=== PATIENT | female | born 1990 | race Caucasian/White ===

== ENCOUNTER 2019-09-15 | Emergency (ER) | payer BC ==
[2019-09-15] MEDS ORDERED: TAM75CAP PO (18:59)
[2019-09-15] MEDS ORDERED: TESSALON PER100 MG PO (18:59)
== END 2019-09-15 19:11 | disposition home or self-care (01) | DRG 866 ==
DX: B34.9 Viral infection, unspecified (principal)

== ENCOUNTER 2019-10-29 | Emergency (ER) | payer BC ==
[~2019-10-29] MED LIST: TAM75CAP PO; TESSALON PER100 MG PO
[2019-10-29 15:53] LABS: HEMATOCRIT 37.9 % (37.0-47.0); HEMOGLOBIN 12.6 g/dl (12.0-16.0); IMMATURE GRANULOCYTES 0.5 % (0.0-5.0); MEAN CELL VOLUME 90.2 fL CALC (80.0-100.0); MEAN CORPUSCULAR HGB CONC 33.2 g/L CALC (32.0-36.0); NEUT# 8.57 thou/uL (2.00-7.15); RED BLOOD COUNT 4.2 mill/uL (4.20-5.60)
[2019-10-29 15:54] LABS: URINE BILIRUBIN - DIPSTICK NEGATIVE (NEGATIVE); URINE BLOOD DIPSTICK NEGATIVE (NEGATIVE); URINE CLARITY CLEAR; URINE COLOR YELLOW; URINE GLUCOSE - DIPSTICK NEGATIVE (NEGATIVE); URINE KETONE NEGATIVE (NEGATIVE); URINE LEUK ESTERASE NEGATIVE (Negative); URINE NITRITE - DIPSTICK NEGATIVE (Negative); URINE PROTEIN - DIPSTICK NEGATIVE (NEG-TRACE); URINE SPECIFIC GRAVITY <=1.005; URINE UROBILINOGEN - DIPSTICK 0.2 E.U./dL (0.2)
[2019-10-29 16:15] LABS: ALBUMIN 4.3 g/dL (3.2-5.0); ALKALINE PHOSPHATASE 86 u/l (38-126); ANION GAP 13 (6-22 (CALC)); BILIRUBIN, TOTAL 0.6 mg/dL (0.0-1.4); BUN 10 mg/dL (7-17); BUN/CREATININE RATIO 20 (12-20 (CALC)); CARBON DIOXIDE 25 mmol/l (22-30); CHLORIDE 106 mmol/l (95-108); CREATININE 0.5 mg/dL (0.5-1.0); GFR > 60 ML/MIN (>=60 (CALC)); GFR FOR AFR.AMER. > 60 ML/MIN (>=60 (CALC)); POTASSIUM 4.1 mmol/l (3.5-5.1); SGOT/AST 21 u/l (14-36); SODIUM 140 mmol/l (137-146); TOTAL PROTEIN 7.1 g/dL (6.3-8.2)
[2019-10-29] MEDS ORDERED: AMOXICILLIN875 MG PO (17:39)
== END 2019-10-29 17:47 | disposition home or self-care (01) | DRG 153 ==
DX: J02.9 Acute pharyngitis, unspecified (principal); F17.210 Nicotine dependence, cigarettes, uncomplicated
CPT/HCPCS: Q9967

== ENCOUNTER 2020-09-13 22:57 | Emergency (ER) | payer MEDICAID ==
[~2020-09-13] VITALS: Ht 167.6 cm; Wt 67.7 kg
[~2020-09-13 22:57] MED LIST changes: +AMOXICILLIN875 MG PO
[2020-09-13] MEDS ORDERED: AMOX/K CLAV875 M1 PO (23:29)
[2020-09-13] MEDS ORDERED: PERCOCET 5/325M1 TAB PO (23:29)
[2020-09-13] MEDS ORDERED: ACETIC ACID2 % OT (23:30)
[2020-09-13 23:45] VITALS: BP 123/66
== END 2020-09-13 23:45 | disposition home or self-care (01) ==
LOC: ED 22:57
DX: H66.91 Otitis media, unspecified, right ear (principal); H60.91 Unspecified otitis externa, right ear; F17.210 Nicotine dependence, cigarettes, uncomplicated

== ENCOUNTER 2021-04-28 08:54 | Emergency (ER) | payer BC ==
[~2021-04-28] VITALS: Ht 167.6 cm; Wt 64.0 kg
[~2021-04-28 08:54] MED LIST changes: +ACETIC ACID2 % OT; +AMOX/K CLAV875 M1 PO; +PERCOCET 5/325M1 TAB PO
[2021-04-28 09:55] VITALS: BP 127/75
== END 2021-04-28 09:55 | disposition home or self-care (01) | DRG 866 ==
LOC: ED 08:54
DX: B34.9 Viral infection, unspecified (principal); F17.200 Nicotine dependence, unspecified, uncomplicated; Z20.822 Contact with and (suspected) exposure to COVID-19

== ENCOUNTER 2021-05-07 17:41 | Emergency (ER) | payer BC | END 2021-05-07 18:22 | disposition left against medical advice (07) | DRG 951 | LOC: ED 17:41 → LWOBS 18:22 | DX: Z53.21 Procedure and treatment not carried out due to patient leaving prior to being seen by health care provider (principal) ==

== ENCOUNTER 2023-07-18 13:30 | Emergency (ER) | payer BC | END 2023-07-18 15:50 | disposition left against medical advice (07) | DRG 951 | LOC: ED 13:30 → LWOBS 14:46 | DX: Z53.21 Procedure and treatment not carried out due to patient leaving prior to being seen by health care provider (principal) ==